=== PATIENT | female | born 1980 | race Two or more races ===

== ENCOUNTER 2024-06-29 13:14 | Emergency (ER) | payer OTHER ==
[~2024-06-29] VITALS: Ht 149.9 cm; Wt 90.0 kg
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
[2024-06-29] MEDS: SODIUM CHLORIDE 0.9% 1,000 ML IVB ONE (14:14)
[2024-06-29 14:16] VITALS: PULSE 110; RESP 20; O2SAT 97
[2024-06-29] MEDS: ONDANSETRON HCL 4 MG/2 ML VIAL IV ONE (14:17)
[2024-06-29] MEDS: MORPHINE SULFATE 4 MG/ML SYR/VIAL IV ONE (14:19)
[2024-06-29 14:39] LABS: Basophils # (auto) 0 10 ^3/uL (0-0.2); Basophils % (auto) 0.3 % (0.0-2.0); Eosinophils # (auto) 0.1 10 ^3/uL (0-0.8); Eosinophils % (auto) 0.9 % (0.0-7.0); Hemoglobin 13.5 g/dL (12.2-16.2); Lymphocytes # (auto) 2.1 10 ^3/uL (0.4-5.4); Mean Corpuscular Hemoglobin 29.8 pg (28.0-32.0); Mean Corpuscular Hgb Conc. 33.7 g/dL (32.0-36.0); Mean Corpuscular Volume 88.5 fL (80.0-100.0); Monocytes # (auto) 0.6 10 ^3/uL (0-1.3); Monocytes % (auto) 5.7 % (0.0-12.0); Neutrophils # (auto) 8.2 10 ^3/uL (1.6-8.6); Neutrophils % (auto) 74.1 % (37.0-80.0); Platelet Count (auto) 285 10^3/uL (140-450); Red Blood Cells 4.52 10^6/uL (4.0-5.20); Red Cell Distribution Width 13.6 % (11.8-14.3)
[2024-06-29 14:53] LABS: Potassium 3.7 mmol/L (3.5-5.1); Sodium 139 mmol/L (136-145)
[2024-06-29 14:54] LABS: Anion Gap 12 (5-15); Calcium 9.8 mg/dL (8.7-10.4)
[2024-06-29 14:59] LABS: BUN/Creatinine Ratio 13.4 (10.0-20.0); Blood Urea Nitrogen 9 mg/dL (9-23)
[2024-06-29 15:05] LABS: Carbon Dioxide 19 mmol/L (20-31); Chloride 108 mmol/L (98-107); Glucose 133 mg/dL (74-106)
--- NOTE | 2024-06-29 15:36 | DVH ---
OB ULTRASOUND CLINICAL HISTORY: vag bleeding TECHNIQUE: Transabdominal and Transvaginal OB ultrasound. Comparison: None FINDINGS: The uterus measures 12.0 x 5.5 x 5.8 cm. The endometrial stripe measures 13 mm there is no gestationa l sac seen in the uterus. The uterine myometrium appears fairly homogeneous. There is a nonspecific 5 .3 cm heterogeneous collection seen in the vaginal canal. The right and left ovaries are not seen on the current study. There is no free fluid within the cul-de-sac. IMPRESSION: 1. There is no intrauterine identified. Correlation with beta HCG measurements is recommen ded. 2. Nonspecific 5.3 cm heterogeneous collection seen in the vaginal canal. Blood products are not excl uded. 3. Nonvisualization of the ovaries. HS:Y
[2024-06-29] MEDS ORDERED: MISO200T67 PO (15:53)
[2024-06-29 16:07] LABS: INR 1.02 (0.9-1.15); Partial Thromboplastin Time 28.3 SEC (24.5-34.5); Prothrombin Time 10.8 sec (9.3-11.8)
[2024-06-29] MEDS: LACT. RINGERS/OXYTOCIN 20UNITS 1,000 ML IV SCH (16:09)
[2024-06-29] MEDS: MORPHINE SULFATE 4 MG/ML SYR/VIAL IV PRN (16:10)
[2024-06-29] MEDS: ONDANSETRON HCL 4 MG/2 ML VIAL IV PRN (16:11)
[2024-06-29 17:11] VITALS: PULSE 89; RESP 14; TEMP 98.2; O2SAT 94
[2024-06-29 18:45] VITALS: BP 105/65; PULSE 79; RESP 17; O2SAT 96
--- NOTE | 2024-06-29 21:54 | DVHINCON2 ---
DATE OF CONSULTATION: 06/29/2024 REASON FOR CONSULTATION: Vaginal bleeding. HISTORY OF PRESENT ILLNESS: The patient is a 43-year-old 9, para 3, being seen in Emergency Room for heavy vaginal bleeding. The patient states she was . Her ultrasound reveals no intrauterine gestational sac. Endometrium is 1.3 cm thickness with ovaries and tubes grossly normal appearing. No evidence of retained POC noted. No vascularity noted. PAST MEDICAL HISTORY: None. PAST SURGICAL HISTORY: x 2, cholecystectomy, D and C. SOCIAL HISTORY: None. FAMILY HISTORY: None. OBSTETRIC AND GYNECOLOGIC HISTORY: Two sections, one normal vaginal delivery, the rest of miscarriages. REVIEW OF SYSTEMS: Consistent with HPI. ALLERGIES: ASPIRIN. PHYSICAL EXAMINATION: VITAL SIGNS: Stable, afebrile. HEENT: Within normal limits. CARDIOVASCULAR: Regular rate and rhythm. LUNGS: Clear to auscultation. BREASTS: Symmetrical. No masses. ABDOMEN: Soft, obese. PELVIC: External genitalia within normal limits. Vagina: Some blood clot evacuated. Cervix closed. Uterus 10-week size. Adnexa nonpalpable, nontender. EXTREMITIES: No clubbing, cyanosis or edema. IMPRESSION: * Spontaneous , appears to be almost complete . * Morbid obesity. * Advanced maternal age. PLAN: Start the patient on IV plus 20 units of Pitocin x 1 liter. May give some Ancef. Please send the patient home on Cytotec 800 mcg vaginally. Follow up with [facility] as soon as possible. The patient is not actively bleeding. All the blood clots were in the vagina, which were evacuated. Clinically, the patient appears to have essentially complete miscarriage. Her beta-hCG is 2100 on admission. Proceed with Cytotec and follow up with [facility]. We will sign off. Thank you very much for this consultation. DO ZANE Hernandez TID: [id number] RECEIPT: [id number]
--- NOTE | 2024-06-30 11:36 | DVHPN2 ---
Visit Coding OBGYN Date of Service: Jun 29, 2024 Billing Provider: STEPHY MARSH DO [employer]EN SUPERVISOR Common Visit Codes: [id number]-[id number] INP/OBS CARE (HIGH) STEPHY MARSH DO Jun 30, 2024 11:35
== END 2024-06-29 19:12 | disposition home or self-care (01) ==
LOC: EDBD 13:14 → ER 13:14
DX: O03.9 Complete or unspecified spontaneous abortion without complication (principal); Z90.49 Acquired absence of other specified parts of digestive tract; Z98.890 Other specified postprocedural states; Z88.6 Allergy status to analgesic agent
CPT/HCPCS: 36415; 76801; 80048; 84702; 85025; 85610; 85730; 86850; 86900; 86901; 96361; 96365; 96375; 96376; 99285; J2270; J2405; J2590; J7030